=== PATIENT | female | born 1960 | race African-American/Black ===

== ENCOUNTER 2022-02-06 12:19 | Emergency (ER) | payer OTHER ==
[~2022-02-06] VITALS: Ht 167.6 cm; Wt 64.0 kg
[2022-02-06] MEDS ORDERED: ASPIRIN 81MG TABLET PO ONE (12:45)
[2022-02-06] MEDS ORDERED: NITROGLYCERIN 0.4MG TABLET SL SL PRN (12:45)
[2022-02-06] MEDS ORDERED: ONDANSETRON HCL 4MG/2ML INJ IV STA (13:23)
[2022-02-06] MEDS ORDERED: MORPHINE SULFATE 4 MG/ML CPJ (NOT FOR IM USE) IV STA (13:23)
[2022-02-06 13:30] LABS: HEMATOCRIT. 41.4 % (36.0-48.0); HEMOGLOBIN. 13.9 g/dL (12.0-16.0); MEAN CORPUSCULAR HEMOGLOBIN 27.1 pg (28.0-32.0); MEAN CORPUSCULAR VOLUME 80.9 fL (81.0-99.0); MEAN PLATELET VOLUME 8.8 fl (7.4-10.4); PLATELET 321 x1000/uL (130-400); RED BLOOD CELL COUNT 5.13 mill/uL (4.2-5.4); RED CELL DISTRIBUTION WIDTH 16.3 % (11.6-14.6)
[2022-02-06 13:37] LABS: CHLORIDE 108 mEq/L (98-107)
[2022-02-06 14:05] LABS: PLATELET ESTIMATE NORMAL
[2022-02-06] MEDS ORDERED: AMLODIPINE 2.5MG TABLET PO ONE (14:15)
[2022-02-06] MEDS ORDERED: AMLODIPINE 10MG TABLET PO ONE (14:15)
[2022-02-06] MEDS ORDERED: ONDANSETRON HCL 4MG/2ML INJ IV ONE (15:00)
[2022-02-06 17:30] VITALS: BP 146/82
== END 2022-02-06 17:45 | disposition short-term general hospital (02) ==
LOC: ER 12:19 → CANBEDREQ 02-08 01:35
DX: I20.0 Unstable angina (principal); I10 Essential (primary) hypertension; R94.31 Abnormal electrocardiogram [ECG] [EKG]; Z20.822 Contact with and (suspected) exposure to COVID-19; I25.2 Old myocardial infarction
CPT/HCPCS: 36415; 71045; 80053; 83690; 84484; 85025; 87426; 93005; 96374; 96375; 96376; 99285; C9803; J2270; J2405; Z7610